=== PATIENT | female | born 1995 | race American Indian/Alaskan Native ===

== ENCOUNTER 2020-11-07 11:41 | Emergency (ER) | payer SELFPAY ==
[2020-11-07 11:50] VITALS: BP 125/69
--- NOTE | 2020-11-07 11:53 | Emergency Department Report ---
Chief Complaint: Medical Clearance Stated Complaint: SYNCOPE Time Seen by Provider: 11/07/20 11:48 - HPI History of Present Illness: Patient is a 25-year-old female presents emergency room with complaints of a return to work excuse. She states that she needs clearance to be able to return to work. She states that 5 days ago she was standing at work all day and locked her knees out and had a brief episode of loss of consciousness and left work. She was not evaluated at that time. She states that she now presents 5 days later so she can have a return to work note. She has no symptoms at all currently. She denies any headache, vision changes, numbness, weakness, chest pain, shortness of breath, hemoptysis, leg swelling, fever, vomiting, diarrhea, previous syncopal episodes, palpitations, abd pain. No past medical history. No allergies to medications. Vitals are normal On exam: Non toxic appearing, no acute distress atraumatic, normocephalic normal appearance of the eyes, EOMI, no periorbital edema or ecchymosis moist mucus membranes No respiratory distress, no accessory muscle use A&O x4, no focal neuro deficit, moving all extremities, ambulating without difficulty skin is warm, dry, intact Advised patient that a return to work clearance would have to be done by a primary care physician she is currently asymptomatic and has been for 4 days, she has no clinical signs of dehydration, her vitals are normal, she has no focal neuro deficits Discussed strict return precautions in detail with patient Patient given the appropriate resources Medical screening examination performed and there is no threat to life or limb at this time - Exam Vital Signs: Vital Signs 11/07/20 11:47 Temperature 99.2 F Pulse Rate 92 H Respiratory 16 Rate Blood Pressure 125/69 O2 Sat by Pulse 98 Oximetry MSE screening note: Focused history and physical exam performed. Due to findings the following was ordered: ED Disposition for MSE Clinical Impression: Encounter for medical screening examination Disposition: Z- MED SCREENING EXAM-LEFT Is pt being admited?: No Does the pt Need Aspirin: No Condition: Stable Additional Instructions: Please follow-up with a primary care doctor in order to receive clearance for work. Return to emergency room for new or worsening symptoms. walk in clinic: [facility] in [place], [place] Address: [address] [place] [id number] Referrals: [facility], [LAB/CONTRACT] - 2-3 Days [facility] [Provider Group] - 2-3 Days HOSEA HARMON MD [Staff Physician] - 2-3 Days Time of Disposition: 11:52 Print Language: BRAZILIAN
== END 2020-11-07 12:30 | disposition left against medical advice (07) ==
LOC: ED 11:41
DX: Z00.00 Encounter for general adult medical examination without abnormal findings (principal); Z53.21 Procedure and treatment not carried out due to patient leaving prior to being seen by health care provider

== ENCOUNTER 2021-05-14 14:18 | Outpatient (CLI) | payer MEDICAID ==
[2021-05-14] MEDS ORDERED: LACTATED RINGERS 1,000 ML IV ONE (17:17)
[2021-05-14 17:21] VITALS: BP 130/72
[2021-05-14 18:05] LABS: Bilirubin,Urine NEG (Negative); Blood,Urine NEG (Negative); Calcium Oxalate Crystals,Urine 1+; Color,Urine Yellow (Yellow); Mucus,Urine 2+ /HPF; Protein,Urine <15 mg/dL mg/dL (Negative); Urobilinogen,Urine < 2.0 mg/dL (<2.0)
== END 2021-05-14 19:26 | disposition home or self-care (01) ==
LOC: EDBD → TRG 14:18
PROVIDERS: ATTEND Obstetrics & Gynecology
DX: Z34.93 Encounter for supervision of normal pregnancy, unspecified, third trimester (principal); Z3A.30 30 weeks gestation of pregnancy
CPT/HCPCS: 59025; 81001

== ENCOUNTER 2021-05-23 13:48 | Outpatient (CLI) | payer MEDICAID ==
[2021-05-23 14:34] VITALS: BP 125/65
[2021-05-23] MEDS ORDERED: LACTATED RINGERS 1,000 ML IV ONE (15:50)
[2021-05-23 16:02] LABS: Bacteria,Urine 1+ /HPF (Negative); Bilirubin,Urine NEG (Negative); Blood,Urine NEG (Negative); Color,Urine Yellow (Yellow); Mucus,Urine FEW /HPF; Protein,Urine <15 mg/dL mg/dL (Negative); Urobilinogen,Urine < 2.0 mg/dL (<2.0)
[2021-05-23] MEDS ORDERED: LIDOCAINE-MPF (1%) 10 MG/1 ML VIAL 5 ML INFILTRATI ONE (18:44)
--- NOTE | 2021-05-24 13:57 | Ultrasound Report ---
ULTRASOUND OBSTETRIC LIMITED INDICATION / CLINICAL INFORMATION: . IUP at 31.3 weeks. Rule out SROM. Clinical Gestational Age ([place]) in weeks, days: 31 weeks 3 days TECHNIQUE: Transabdominal. COMPARISON: None available. FINDINGS: HEART RATE (beats per minute): 157 bpm AMNIOTIC FLUID INDEX (cm) = 10.9 (normal = 7-24 cm) PRESENTATION: Cephalic. ADDITIONAL FINDINGS: None. IMPRESSION: 1. No sonographic abnormality. Scribed by: Ashly De La Cruz RDMS, RVT Scribed: 05/23/2021 3:11 PM I have reviewed the images, agree with this report, and edited this report as needed. Signer Name: Mark Yeager MD Signed: 05/24/2021 1:52 PM Workstation Name: [id number]
== END 2021-05-23 18:20 | disposition home or self-care (01) ==
LOC: TRG 13:48 → APU 13:50 → TRG 18:20
PROVIDERS: ATTEND Obstetrics & Gynecology
DX: Z34.93 Encounter for supervision of normal pregnancy, unspecified, third trimester (principal); Z3A.31 31 weeks gestation of pregnancy
CPT/HCPCS: 36415; 76815; 81001; 84112; 87086; J0696

== ENCOUNTER 2021-06-25 13:08 | Outpatient (CLI) | payer MEDICAID ==
[2021-06-25 14:11] LABS: Basophils # (Auto) 0.1 K/mm3 (0.0-0.1); Basophils % (Auto) 1.3 % (0.0-1.8); Eosinophils % (Auto) 0.3 % (0.0-4.3); Hematocrit 38.9 % (30.3-42.9); Hemoglobin 12.4 gm/dl (10.1-14.3); Lymphocytes # (Auto) 1.2 K/mm3 (1.2-5.4); Lymphocytes % (Auto) 14.7 % (13.4-35.0); Mean Corpuscular HGB Conc 32 % (30-34); Mean Corpuscular Volume 86 fl (79-97); Monocytes # (Auto) 0.6 K/mm3 (0.0-0.8); Monocytes % (Auto) 7.3 % (0.0-7.3); Platelet Count 197 K/mm3 (140-440); Red Blood Count 4.54 M/mm3 (3.65-5.03); Red Cell Distribution Width 15.6 % (13.2-15.2)
[2021-06-25 14:32] LABS: Alanine Aminotransferase 9 units/L (7-56); Albumin 3.6 g/dL (3.9-5); Blood Urea Nitrogen 5 mg/dL (7-17); Hemolysis Index 2
[2021-06-25 14:37] LABS: BUN/Creatinine Ratio 17
--- NOTE | 2021-06-25 14:45 | Ultrasound Report ---
ULTRASOUND OBSTETRIC LIMITED ULTRASOUND BIOPHYSICAL PROFILE INDICATION / CLINICAL INFORMATION: Syncopal episodes. COMPARISON: None available. FINDINGS: Biophysical Profile: breathing movements: 2 movements:2 posture and tone:2 Qualitative amniotic fluid volume: 2 heart rate is 129 bpm IMPRESSION: 1. Biophysical Score = 8/8 Signer Name: Mark Yeager MD Signed: 06/25/2021 2:41 PM Workstation Name: [email or web address]
[2021-06-25 14:59] VITALS: BP 125/58
== END 2021-06-25 15:01 | disposition home or self-care (01) ==
LOC: TRG 13:08 → APU 13:10 → TRG 15:01
PROVIDERS: ATTEND Obstetrics & Gynecology
DX: Z34.93 Encounter for supervision of normal pregnancy, unspecified, third trimester (principal); Z3A.36 36 weeks gestation of pregnancy
CPT/HCPCS: 36415; 59025; 76819; 80053; 85025